=== PATIENT | male | born 1955 | race Caucasian/White ===

== ENCOUNTER 2019-01-23 19:41 | Inpatient (IN) ==
[~2019-01-23 19:41] MED LIST: LIDOCAINE W/ SODIUM BICARB 0.5 ML SYR ONE; Lactated Ringers 1,000 ML PRIMARY IV ONE
[2019-01-23] MEDS ORDERED: ceFAZolin Inj 3 GM in Sodium Chloride 0.9% 100 ML IV ONE (20:00)
[2019-01-23] MEDS ORDERED: KETAMINE 100 MG/1 ML - 5 ML ONE (20:12)
[2019-01-23] MEDS ORDERED: fentaNYL Inj 250 MCG/5 ML VIAL ONE ×2 (20:12→21:05)
[2019-01-23] MEDS ORDERED: MIDAZOLAM 5 MG/1 ML ONE (20:12)
[2019-01-23] MEDS ORDERED: LIDOCAINE MPF 2% - 5 ML (20 MG/1 ML) ONE (20:13)
[2019-01-23] MEDS ORDERED: PROPOFOL 10 MG/1 ML (200 MG/20 ML) VIAL IV ONE ×2 (20:13→21:05)
[2019-01-23] MEDS ORDERED: FAMOTIDINE 20 MG/2 ML VIAL IVP ONE (20:24)
[2019-01-23] MEDS ORDERED: Sodium Chloride 0.9% vial 20 ML ONE ×3 (20:43→21:23)
[2019-01-23] MEDS ORDERED: BUPivacaine Inj 0.25% PF - 10ml vial ONE (20:43)
[2019-01-23] MEDS ORDERED: BACITRACIN 50,000 UNIT VIAL IRRIG ONE ×3 (20:43→21:23)
[2019-01-23] MEDS ORDERED: Vancomycin Inj 1gm vial ONE (20:43)
[2019-01-23] MEDS ORDERED: PHENYLEPHRINE 10,000 MCG/1 ML VIAL ONE (21:05)
[2019-01-23] MEDS ORDERED: Sodium Chloride 0.9% vial 10 ML ONE (21:05)
[2019-01-23] MEDS ORDERED: TRANEXAMIC ACID 1,000 MG / 10 ML VIAL ONE (22:05)
--- NOTE | 2019-01-23 22:14 | CRNA.PROGR ---
Anesthesia Time - Procedure/Recovery Time Start Date: 01/23/19 Anesthesia : Time In: 20:48 Anesthesia : Time Out: 22:10 - Other Weight: 90.356 kg Height: 5 ft 11 in Body Mass Index (BMI): 27.8 Physical Status: P3 Anesthesia Type: General Anesthesia : LMA
[2019-01-23] MEDS ORDERED: ceFAZolin Inj 2 GM in Sodium Chloride 0.9% 100 ML IV SCH (23:00)
[2019-01-23] MEDS ORDERED: Glucagon Inj Vial 1 MG/ML VIAL IM PRN (23:34)
[2019-01-23] MEDS ORDERED: DEXTROSE 31 GM GEL PO PRN (23:34)
[2019-01-23] MEDS ORDERED: DEXTROSE 50%-WATER SYRINGE 50 ML SYRINGE IVP PRN (23:34)
[2019-01-23] MEDS ORDERED: Insulin Sliding Scale Protocol SUBCUT PRN (23:34)
--- NOTE | 2019-01-23 23:39 | PDOC ---
HPI - History of Present Illness Date of Service: 01/23/19 Time of Service: 23:31 Chief Complaint: Right knee swelling History of Present Illness: This is a pleasant 64-year-old male who resides in [place], [place], with known osteoarthritis, recent meniscal tears in his right knee scoped and repaired, diabetes mellitus type II, hypertension, gouty arthropathy, presumably atrial fibrillation on amiodarone and Eliquis, who presented for knee washout with Dr. Meyers. Apparently the patient had swelling in his knee postoperatively from his meniscal repairs and right knee scope 6 weeks ago that really did not improve a whole bunch, but got significantly worse after he could not get up the stairs after he was intoxicated. He states he drinks only once a year and this just happened to be that time that he did on this past Saturday. As the swelling was still persistent, workup was done and the patient had signs of a possible septic knee. He was brought down here from [place] and had washout done, see Dr. Meyers's notes regarding the procedure. He was placed on Ancef. There are no known MRSA risk factors. He states postoperatively that his knee pain is well controlled. He denies any chest pain, shortness breath, nausea or vomiting. His son was present and I spoke with him regarding the plan from the hospitalist side which would include blood sugar checks, insulin as necessary, and holding by mouth medications for diabetes. Past Medical History Medical History: 1. Diabetes mellitus type II. 2. Hypercholesterolemia. 3. Hypertension. 4. History of congestive heart failure although I don't know details of that and do not have an echocardiogram to reassess. 5. Osteoarthritis Surgical History: 1. Right meniscal tear repair. 2. Knee washout today. 3. Tonsillectomy. 4. Remote neck fusion Pertinent Family History: Significant for diabetes in an aunt Past Social History: Does not smoke or drink alcohol regularly. He states that he drinks heavily once a year. for 5 years. Has 3 children described as healthy. Currently retired and lives in [place], [place]. Tobacco Use: Former Smoker In the Past 12 Months, Have Used or Abuse Any of the Following Substance: None Alcohol Use: None Medication / Allergies Home Medications: Home Medications Medication Instructions Recorded Confirmed Amiodarone HCl 200 mg PO DAILY 11/21/18 01/23/19 Apixaban [Eliquis] 5 mg PO BID 11/21/18 01/23/19 Aspirin [Aspir 81] 81 mg PO DAILY 11/21/18 01/23/19 Atorvastatin Calcium 40 mg PO DAILY 11/21/18 12/10/18 Carvedilol 3.125 mg PO BID 11/21/18 01/23/19 Clopidogrel Bisulfate [Plavix] 75 mg PO DAILY 11/21/18 01/23/19 Insulin Aspart [Novolog] 100 unit SQ DAILY 11/21/18 01/23/19 Insulin Degludec [Tresiba 86 unit SQ DAILY 11/21/18 01/23/19 Flextouch U-200] Liraglutide [Victoza 3-Misha] 4.2 mg SQ DAILY 11/21/18 01/23/19 Magnesium l-Lactate [Mag-Tab Sr] 84 mg PO DAILY 11/21/18 01/23/19 Potassium Chloride 10 meq PO DAILY 11/21/18 12/10/18 Sitagliptin Phosphate [Januvia] 25 mg PO DAILY 11/21/18 12/10/18 Torsemide 100 mg PO DAILY 11/21/18 01/23/19 Hydrocodone/Acetaminophen [[place] 1 - 2 ea PO Q4-6H PRN #30 tab 12/11/18 7.5-325 Tablet] Allergies/Adverse Reactions: Allergies Allergy/AdvReac Type Severity Reaction Status Date / Time No Known Allergies Allergy Verified 01/23/19 20:00 Review of Systems - Review of Systems All Systems: Reviewed & No Additional Complaints Except as Stated (I did a 12 point review systems and it was negative other than that discussed below and in the history of present illness.) - Neurological Neurologic: REPORTS: Seizures (Had a possible seizure in the past but he does not recall details at this time) Exam - Vitals Vital Signs: Vital Signs Temperature 97.9 F Temperature Source Oral Pulse Rate 86 Respiratory Rate 16 Blood Pressure [Left Arm] 116/80 Blood Pressure 119/85 Pulse Ox 93 Oxygen Flow Rate 3 Oxygen Delivery Method Nasal Cannula Height 5 ft 8 in Weight 200 lb - General General Appearance: No Acute Distress, Cooperative - Head Head Exam: Normal Inspection, Normocephalic, Atraumatic - Eye Eye Exam: POSITIVE: No Scleral Icterus - ENT ENT Exam: POSITIVE: Mucous Membranes Moist - Neck Neck Exam: Normal Inspection, No Tenderness, No Lymphadenopathy, No Thyromegaly, JVP is not Raised - Respiratory Respiratory Exam: POSITIVE: Clear to Auscultation - Bilaterally, Breathing Non Labored - Cardiovascular Cardiovascular Exam: POSITIVE: RRR, No Murmur, No Clicks, No Gallops, No Rubs, No JVD - GI/Abdominal GI/Abdominal Exam: POSITIVE: Normal Bowel Sounds, Non Tender, Non Distended, Soft - Rectal Rectal Exam: POSITIVE: Deferred - External Exam: POSITIVE: Deferred Exam: POSITIVE: Deferred - Extremities Extremities Exam: POSITIVE: No Clubbing Present, No Edema Present, No Cyanosis Present, Joint Swelling (Right knee, dressed at this time. Dressing is clean, dry, intact) - Neurological Neurological Exam: POSITIVE: Alert, Oriented x 3, No Facial Droop, Speech Intact / Clear, Moves All Extremities Equally - Psychiatric Psychiatric Exam: POSITIVE: Normal Affect, Normal Mood Results - Labs Additional Lab Results: I do not have any labs from today. 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 insulin use: with [facility] use Diabetes mellitus complication status: without complication Qualified Code(s): E11.9 - Type 2 diabetes mellitus without complications; Z79.4 - skilled nursing (current) use of insulin (2) Hypertension Current Visit: Yes Status: Acute Code(s): I10 - Essential (primary) hypertension Qualifiers: Hypertension type: essential hypertension Qualified Code(s): I10 - Essential (primary) hypertension (3) Septic arthritis of knee, right Current Visit: Yes Status: Acute Code(s): M00.9 - Pyogenic arthritis, unspecified Qualifiers: Septic arthritis organism: due to unspecified organism Qualified Code(s): M00.9 - Pyogenic arthritis, unspecified (4) History of congestive heart failure Current Visit: Yes Status: Acute Code(s): Z86.79 - Personal history of other diseases of the circulatory system (5) Hypercholesterolemia Current Visit: Yes Status: Acute Code(s): E78.00 - Pure hypercholesterolemia, unspecified - Assessment / Plan Additional Assessment/Plan Details: Patient is admitted, Ancef IV every 8 hours (2 g) await culture results. Dr. Meyers told me he plans to wash the patient out again on Saturday. For now, Eliquis but hold on Saturday morning in preparation for surgery on Saturday. Resume postoperatively if okay with orthopedics. Stop Januvia. Blood sugars before meals and at bedtime with corrective dose insulin. Maintain other diabetes medications. Regular diet. Generally, particularly if there is an organism growth 3 weeks of antibiotics minimum, likely IV. I will order blood cultures although I expect that they'll be negative. Ultimately cultures from the knee will likely guide therapy. About 20% of time, cultures can be negative. We'll discuss with infectious disease to determine long-term antibiotic plan. Thank you for this consult. It'll be the hospitalist service's pleasure to assist in this patient's care during the hospital stay. Discussed with son and patient at bedside and they agreed with the plan.
[2019-01-23] MEDS: CARVEDILOL 3.125 MG TABLET PO SCH (23:50)
[2019-01-23] MEDS: Apixaban 5 MG TABLET PO SCH (23:50)
[2019-01-24] MEDS: ceFAZolin Inj 2 GM in Sodium Chloride 0.9% 100 ML IV SCH ×3 (00:09→15:55)
[2019-01-24] MEDS: HYDROcodone-APAP 7.5 MG-325 MG TABLET PO PRN ×3 (00:13→21:15)
[2019-01-24 04:45] LABS: BASOPHILS # (AUTO) 0.01 10*3/UL; BASOPHILS % (AUTO) 0.1 % (0-1); EOSINOPHILS # (AUTO) 0 10*3/UL; EOSINOPHILS % (AUTO) 0 % (0-8); Hematocrit [HCT] 37.8 % (42.0-52.0); Hemoglobin [HGB] 11.6 g/dL (14.0-18.0); LYMPHOCYTES # (AUTO) 0.56 10*3/uL; MEAN CORPUSCULAR HGB CONC 30.7 g/dL (33-37); MEAN CORPUSCULAR VOLUME 72.3 FL (80-90); MONOCYTES # (AUTO) 0.38 10*3/UL (0.3-0.8); MONOCYTES % (AUTO) 3.5 % (5-15); RED BLOOD COUNT 5.23 10^6/uL (4.70-6.10)
[2019-01-24 04:52] LABS: BLOOD UREA NITROGEN 30 mg/dL (7-22)
[2019-01-24 05:09] LABS: PLATELET MORPHOLOGY COMMENT NORMAL MORPHOLOGY (NORM); RBC MORPHOLOGY COMMENT SEE COMMENTS (NORM); WBC MORPHOLOGY COMMENT NORMAL MORPHOLOGY (NORM)
[2019-01-24] MEDS: Insulin Lispro Flexpen 300 UNIT/3 ML INSULN.PEN SUBCUT SCH ×3 (06:58→16:22)
[2019-01-24] MEDS ORDERED: sitaGLIPtin Tab 100 MG TAB PO SCH (09:00)
[2019-01-24] MEDS ORDERED: INSULIN ASPART 100 UNIT SQ SCH (09:00)
[2019-01-24] MEDS: ASPIRIN EC 81 MG TABLET PO SCH (09:08)
[2019-01-24] MEDS: CLOPIDOGREL 75 MG TABLET PO SCH (09:08)
[2019-01-24] MEDS: ATORVASTATIN 40 MG TABLET PO SCH (09:09)
[2019-01-24] MEDS: MAGNESIUM OXIDE 400 MG TABLET PO SCH (09:09)
[2019-01-24] MEDS: Apixaban 5 MG TABLET PO SCH ×2 (09:09→21:15)
[2019-01-24] MEDS: CARVEDILOL 3.125 MG TABLET PO SCH ×2 (09:09→21:15)
[2019-01-24] MEDS: AMIODARONE 200 MG TABLET PO SCH (09:09)
[2019-01-24] MEDS: Potassium Chloride Tab 10 MEQ TAB PO SCH (09:09)
--- NOTE | 2019-01-24 09:14 | ORTHO.OP ---
Surgery Date: 01/23/19 Preoperative Diagnosis: R knee septic arthritis Postoperative Diagnosis: R knee septic arthritis Procedure: Right knee arthroscopic washout, I & D and synovctomy of R knee septic arthritis Surgeon: Vazquez Meyers MD Anesthesia Provider: Ginette Wheeler CRNA Anesthesia Type: General Estimated Blood Loss (mL): 100 Fluids: 500 ml crystalloid Pathology: none, cultures done previously on aspirate in [place] and patient already started on antibiotics Complications: None
--- NOTE | 2019-01-24 09:24 | ORTHO.PROG ---
Progress Note -: Vital Signs - Last Taken Temperature 97.6 F 01/24/19 08:51 Pulse Rate 69 01/24/19 08:51 Respiratory Rate 20 01/24/19 08:51 Blood Pressure 104/50 01/24/19 08:51 Pulse Ox 96 01/24/19 08:51 Laboratory Results 01/24/19 01/24/19 01/24/19 04:30 04:30 04:30 WBC 10.77 RBC 5.23 Hgb 11.6 L Hct 37.8 L MCV 72.3 L MCH 22.2 L MCHC 30.7 L RDW Std Deviation 58.4 H RDW Coeff of Shad 22.5 H Plt Count 421 H MPV 9.0 Immature Gran % (Auto) 0.2 Neut % (Auto) 91.0 H Lymph % (Auto) 5.2 L [place] % (Auto) 3.5 L Eos % (Auto) 0 Baso % (Auto) 0.1 Immature Gran # (Auto) 0.02 Neut # (Auto) 9.80 Lymph # (Auto) 0.56 [place] # (Auto) 0.38 Eos # (Auto) 0 Baso # (Auto) 0.01 WBC Morphology Comment Normal morphology Plt Morphology Comment Normal morphology RBC Morph Comment See comments ESR 23 H Sodium 137 Potassium 4.6 Chloride 104 Carbon Dioxide 24 Anion Gap 9 BUN 30 H Creatinine 1.0 Estimated GFR > 60 BUN/Creatinine Ratio 30.00 H Glucose 355 H Calculated Osmolality 303.0 H Calcium 8.6 L Total Bilirubin 0.4 AST 27 ALT 16 L Alkaline Phosphatase 116 C-Reactive Protein Total Protein 6.3 Albumin 3.0 L Globulin 3.3 Albumin/Globulin Ratio 0.90 L 01/24/19 04:30 WBC RBC Hgb Hct MCV MCH MCHC RDW Std Deviation RDW Coeff of Shad Plt Count MPV Immature Gran % (Auto) Neut % (Auto) Lymph % (Auto) [place] % (Auto) Eos % (Auto) Baso % (Auto) Immature Gran # (Auto) Neut # (Auto) Lymph # (Auto) [place] # (Auto) Eos # (Auto) Baso # (Auto) WBC Morphology Comment Plt Morphology Comment RBC Morph Comment ESR Sodium Potassium Chloride Carbon Dioxide Anion Gap BUN Creatinine Estimated GFR BUN/Creatinine Ratio Glucose Calculated Osmolality Calcium Total Bilirubin AST ALT Alkaline Phosphatase C-Reactive Protein 3.4 H Total Protein Albumin Globulin Albumin/Globulin Ratio Subjective: - Postop Day [1] comfortable, no fever or chills Objective: - Taking PO pain medication - Tolerating diabetic diet - No Alexandra - voiding without difficulty Drain output 80 cc - Labs and Vital Signs reviewed looks dry, will encourage PO liquids. Left shift w/o increased WBC but increased sed rate and CRP and 34,000 WBC on aspirate Assessment/ Plan: - CMS intact, await C& S result from [facility]. will continue IV ancef unless Cx result dictates otherwise. will ambulate in knee immobilizer. Continue DVT prophylaxis. Encourage PO Liquids. -
[2019-01-24] MEDS ORDERED: Sodium Chloride 0.9% 50 ML ONE (09:27)
[2019-01-24] MEDS: INSULIN DEGLUDEC 86 UNIT SQ SCH (09:42)
[2019-01-24] MEDS: TORSEMIDE 100 MG PO SCH (09:42)
[2019-01-24] MEDS: LIRAGLUTIDE SQ SCH (09:42)
[2019-01-24] MEDS ORDERED: Insulin Lispro Flexpen 300 UNIT/3 ML INSULN.PEN SUBCUT ONE ×2 (11:56→11:58)
--- NOTE | 2019-01-24 12:03 | PDOC(PROG) ---
Date of Service: 01/24/19 Time of Service: 12:00 Interval History: She denies chest pain, shortness breath, nausea or vomiting. He tells me that for his insulin he takes a sliding scale is the first 2 digits of his pre-meal blood glucose. He has been running very high blood sugars and so we will do that for him here. He states that his hemoglobin A1c at one time was 5.9, but he had a referral to endocrinology but has not followed up with them. Right knee pain is controlled. Spoke with Dr. Meyers. Cultures in [place] are still negative. Objective : Data - Labs CBC and BMP: 01/24/19 04:30 01/24/19 04:30 Objective : Exam - General General Appearance: No Acute Distress, Cooperative Additional General Exam Details: Vital Signs - Last Taken Temperature 97.6 F 01/24/19 08:51 Pulse Rate 69 01/24/19 08:51 Respiratory Rate 20 01/24/19 08:51 Blood Pressure 104/50 01/24/19 08:51 Pulse Ox 96 01/24/19 08:51 - Eye Eye Exam: No Scleral Icterus - ENT ENT Exam: Mucous Membranes Moist - Neck Neck Exam: JVP is not Raised - Respiratory Respiratory Exam: Clear to Auscultation - Bilaterally, Breathing Non Labored - Cardiovascular Cardiovascular Exam: RRR, No Murmur, No Clicks, No Gallops, No Rubs, No JVD - GI/Abdominal GI/Abdominal Exam: Normal Bowel Sounds, Non Tender, Non Distended, Soft - Extremities Extremities Exam: No Clubbing Present, No Edema Present, No Cyanosis Present, Joint Swelling (Right knee, dressed. Icepack around it.) - Neurological Neurological Exam: Alert, Oriented x 3, No Facial Droop, Speech Intact / Clear 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 mellitus adjunct faculty for medical terminology insulin use: with group home use Diabetes mellitus complication status: without complication Qualified Code(s): E11.9 - Type 2 diabetes mellitus without complications; Z79.4 - shelter (current) use of insulin (2) Hypertension Current Visit: Yes Status: Acute Code(s): I10 - Essential (primary) hypertension Qualifiers: Hypertension type: essential hypertension Qualified Code(s): I10 - Essential (primary) hypertension (3) Septic arthritis of knee, right Current Visit: Yes Status: Acute Code(s): M00.9 - Pyogenic arthritis, unspecified Qualifiers: Septic arthritis organism: due to unspecified organism Qualified Code(s): M00.9 - Pyogenic arthritis, unspecified (4) History of congestive heart failure Current Visit: Yes Status: Acute Code(s): Z86.79 - Personal history of other diseases of the circulatory system (5) Hypercholesterolemia Current Visit: Yes Status: Acute Code(s): E78.00 - Pure hypercholestero lemia, unspecified - Assessment / Plan Additional Assessment/Plan Details: I spoke with Dr. Rodriges with [place] infectious [facility]. He recommended continuing with Anc, recommends 4 weeks of IV antibiotics total. If culture is positive, target antibiotics towards culture results. If culture negative, it was suggested that the patient should be switched to vancomycin. This would be because sometimes staph epidermidis is a very slow grower and difficult to go culture and could be the causative agent. Adjust insulin scale as noted in subjective. Check hemoglobin A1c and labs tomorrow. Washout planned for Saturday with orthopedics. I think the patient would benefit from a PICC line but the soonest we would be able to do that would be either Saturday or Saturday.
[2019-01-25] MEDS: ceFAZolin Inj 2 GM in Sodium Chloride 0.9% 100 ML IV SCH ×2 (00:07→07:58)
[2019-01-25 04:38] LABS: BASOPHILS # (AUTO) 0.02 10*3/UL; BASOPHILS % (AUTO) 0.2 % (0-1); EOSINOPHILS # (AUTO) 0.01 10*3/UL; EOSINOPHILS % (AUTO) 0.1 % (0-8); Hemoglobin [HGB] 11.8 g/dL (14.0-18.0); MEAN CORPUSCULAR HGB CONC 31.1 g/dL (33-37); MEAN CORPUSCULAR VOLUME 72.9 FL (80-90); MEAN PLATELET VOLUME 9.1 FL (7.4-12.2); MONOCYTES # (AUTO) 0.77 10*3/UL (0.3-0.8); NEUTROPHILS # (AUTO) 11.12 10*3/UL; NEUTROPHILS % (AUTO) 85.8 % (50-80); RED BLOOD COUNT 5.21 10^6/uL (4.70-6.10)
[2019-01-25 04:47] LABS: PLATELET MORPHOLOGY COMMENT NORMAL MORPHOLOGY (NORM); RBC MORPHOLOGY COMMENT SEE COMMENTS (NORM); WBC MORPHOLOGY COMMENT NORMAL MORPHOLOGY (NORM)
[2019-01-25 04:50] LABS: BLOOD UREA NITROGEN 30 mg/dL (7-22); BUN/CREATININE RATIO 33.33 (6-20)
[2019-01-25] MEDS: Insulin Lispro Flexpen 300 UNIT/3 ML INSULN.PEN SUBCUT SCH ×3 (07:59→17:46)
[2019-01-25] MEDS: Potassium Chloride Tab 10 MEQ TAB PO SCH (08:50)
[2019-01-25] MEDS: Apixaban 5 MG TABLET PO SCH (08:50)
[2019-01-25] MEDS: ASPIRIN EC 81 MG TABLET PO SCH (08:50)
[2019-01-25] MEDS: MAGNESIUM OXIDE 400 MG TABLET PO SCH (08:50)
[2019-01-25] MEDS: CARVEDILOL 3.125 MG TABLET PO SCH ×2 (08:50→20:15)
[2019-01-25] MEDS: ATORVASTATIN 40 MG TABLET PO SCH (08:51)
[2019-01-25] MEDS: AMIODARONE 200 MG TABLET PO SCH (08:51)
[2019-01-25] MEDS: CLOPIDOGREL 75 MG TABLET PO SCH (08:51)
[2019-01-25] MEDS: INSULIN DEGLUDEC 86 UNIT SQ SCH (09:08)
[2019-01-25] MEDS: TORSEMIDE 100 MG PO SCH (09:08)
[2019-01-25] MEDS: LIRAGLUTIDE SQ SCH (09:08)
[2019-01-25] MEDS ORDERED: MAGNESIUM 400 MG/5 ML - 30 ML (MILK OF MAGNESIA) PO ONE (12:15)
--- NOTE | 2019-01-25 12:19 | PDOC(PROG) ---
Date of Service: 01/25/19 Time of Service: 12:13 Interval History: States that his knee hurt but thinks it could be from the position of the drain catheter. No chest pain, no shortness breath, no nausea or vomiting. When I told him his hemoglobin A1c was above 10, he stated a few weeks ago was around 8 so I'm not sure how to explain that discrepancy. Objective : Data - Labs CBC and BMP: 01/25/19 04:15 01/25/19 04:15 Additional Lab Results: Selected Entries 01/24/19 20:08 01/25/19 07:33 01/25/19 11:48 Finger Stick Blood Glucose 145 H 207 H 178 H Objective : Exam - General General Appearance: No Acute Distress, Cooperative Additional General Exam Details: Vital Signs - Last Taken Temperature 97.1 F 01/25/19 11:36 Pulse Rate 76 01/25/19 11:36 Respiratory Rate 17 01/25/19 11:36 Blood Pressure 126/77 01/25/19 11:36 Pulse Ox 94 01/25/19 11:36 - ENT ENT Exam: Mucous Membranes Moist - Neck Neck Exam: JVP is not Raised - Respiratory Respiratory Exam: Clear to Auscultation - Bilaterally, Breathing Non Labored - Cardiovascular Cardiovascular Exam: RRR, No Murmur, No Clicks, No Gallops, No Rubs, No JVD - GI/Abdominal GI/Abdominal Exam: Normal Bowel Sounds, Non Tender, Non Distended, Soft - Extremities Extremities Exam: No Clubbing Present, No Edema Present, No Cyanosis Present, Joint Swelling (Right knee is dressed. 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: with care home use Diabetes mellitus complication status: without complication Qualified Code(s): E11.9 - Type 2 diabetes mellitus without complications; Z79.4 - assisted (current) use of insulin (3) Hypertension Current Visit: Yes Status: Acute Code(s): I10 - Essential (primary) hypertension Qualifiers: Hypertension type: essential hypertension Qualified Code(s): I10 - Essential (primary) hypertension (4) History of congestive heart failure Current Visit: Yes Status: Acute Code(s): Z86.79 - Personal history of other diseases of the circulatory system (5) Hypercholesterolemia Current Visit: Yes Status: Acute Code(s): E78.00 - Pure hy percholesterolemia, unspecified - Assessment / Plan Additional Assessment/Plan Details: I spoke with infectious disease. I also spoke with the lab in [place]. Cultures thus far negative both aerobic and anaerobic. Infectious disease thinks at this point with culture negative state, daptomycin would be best for coverage in case this is a staph epidermidis infection or something more difficult culture out of the knee that daptomycin recover. We will arrange antibiotics and send everything to recommend infectious disease tomorrow. PICC line probably on Saturday given surgery tomorrow and then probable discharge Saturday. Blood sugars much better controlled on the patient's home regimen. Ultimately I think he would do better on a pop and he already has a referral from his primary care physician to an reliability engineer. I discussed importance of controlling blood sugars in the setting of potential infection. He seems to understand the discussion well. Hold blood thinners and stop Plavix and Eliquis Resume the blood thinners tomorrow after surgery
[2019-01-25] MEDS: FUROSEMIDE 20 MG TABLET PO SCH (13:08)
[2019-01-25] MEDS: SODIUM CHLORIDE 0.9% IV SCH (13:51)
[2019-01-25] MEDS: DAPTOMYCIN IV SCH (13:51)
[2019-01-25] MEDS: GABAPENTIN 300 MG CAPSULE PO SCH (20:15)
[2019-01-25] MEDS ORDERED: CARVEDILOL 3.125 MG TABLET PO ONE (21:39)
--- NOTE | 2019-01-25 23:27 | ORTHO.PROG ---
Progress Note -: Vital Signs - Last Taken Temperature 97.6 F 01/25/19 18:51 Pulse Rate 69 01/25/19 18:51 Respiratory Rate 18 01/25/19 18:51 Blood Pressure 112/68 01/25/19 18:51 Pulse Ox 94 01/25/19 18:51 Laboratory Results 01/25/19 01/25/19 01/25/19 04:15 04:15 04:15 WBC 12.94 H RBC 5.21 Hgb 11.8 L Hct 38.0 L MCV 72.9 L MCH 22.6 L MCHC 31.1 L RDW Std Deviation 59.7 H RDW Coeff of Shad 22.8 H Plt Count 425 H MPV 9.1 Immature Gran % (Auto) 0.2 Neut % (Auto) 85.8 H Lymph % (Auto) 7.7 L [place] % (Auto) 6.0 Eos % (Auto) 0.1 Baso % (Auto) 0.2 Immature Gran # (Auto) 0.02 Neut # (Auto) 11.12 Lymph # (Auto) 1.00 [place] # (Auto) 0.77 Eos # (Auto) 0.01 Baso # (Auto) 0.02 WBC Morphology Comment Normal morphology Plt Morphology Comment Normal morphology RBC Morph Comment See comments Sodium 140 Potassium 4.1 Chloride 105 Carbon Dioxide 28 Anion Gap 7 BUN 30 H Creatinine 0.9 Estimated GFR > 60 BUN/Creatinine Ratio 33.33 H Glucose 215 H Mean Blood Glucose 276.970 Hemoglobin A1c 10.90 H Calculated Osmolality 301.0 H Calcium 8.4 L Total Creatine Kinase 01/25/19 05:00 WBC RBC Hgb Hct MCV MCH MCHC RDW Std Deviation RDW Coeff of Shad Plt Count MPV Immature Gran % (Auto) Neut % (Auto) Lymph % (Auto) [place] % (Auto) Eos % (Auto) Baso % (Auto) Immature Gran # (Auto) Neut # (Auto) Lymph # (Auto) [place] # (Auto) Eos # (Auto) Baso # (Auto) WBC Morphology Comment Plt Morphology Comment RBC Morph Comment Sodium Potassium Chloride Carbon Dioxide Anion Gap BUN Creatinine Estimated GFR BUN/Creatinine Ratio Glucose Mean Blood Glucose Hemoglobin A1c Calculated Osmolality Calcium Total Creatine Kinase 20 L Subjective: - Postop Day [2] Knee a little sore. No CP,SOB. Objective: - Taking PO pain medication - Tolerating diabeticdiet - No Alexandra - voiding without difficulty - Ambulating in immobilizer - Labs and Vital Signs reviewed no growth on culture. No F/C. Assessment: - CMS intact - minimal dng in hemovac Plan: I appreciate Dr. Vazquez's and Dr. Rodriges's assistance. Plan is to hold blood thinners today. Add on tomorrow for repeat washout. Will need PICC line for 4 wks Dapto to cover possible Staph Epidermitis which can be difficult to grow on culture. NPO p 7am.
[2019-01-26] MEDS: FUROSEMIDE 20 MG TABLET PO SCH ×2 (07:21→12:25)
[2019-01-26] MEDS: Insulin Lispro Flexpen 300 UNIT/3 ML INSULN.PEN SUBCUT SCH ×3 (07:21→16:23)
[2019-01-26] MEDS: Potassium Chloride Tab 10 MEQ TAB PO SCH ×2 (07:39→16:02)
[2019-01-26] MEDS: MAGNESIUM OXIDE 400 MG TABLET PO SCH (09:03)
[2019-01-26] MEDS: CARVEDILOL 3.125 MG TABLET PO SCH ×2 (09:04→21:48)
[2019-01-26] MEDS: AMIODARONE 200 MG TABLET PO SCH (09:04)
[2019-01-26] MEDS: GABAPENTIN 300 MG CAPSULE PO SCH ×3 (09:05→21:48)
[2019-01-26] MEDS ORDERED: Lidocaine 1% 10 MG/ML - 20 ML VIAL SUBCUT PRN (09:14)
[2019-01-26] MEDS ORDERED: LIDOCAINE 2% 20 MG/ML - 20 ML VIAL SUBCUT PRN (09:14)
[2019-01-26] MEDS ORDERED: HEPARIN 500 UNIT/5 ML SYRINGE FOR CENTRAL LINE IVP PRN (09:14)
[2019-01-26] MEDS ORDERED: LIDOCAINE W/ SODIUM BICARB 0.5 ML SYR SUBD PRN ×2 (09:18→19:55)
[2019-01-26] MEDS: LIRAGLUTIDE SQ SCH (09:37)
[2019-01-26] MEDS: INSULIN DEGLUDEC 86 UNIT SQ SCH (09:37)
--- NOTE | 2019-01-26 10:50 | OPS CRUTCH ---
Referral Reason: Knee Immobilizer O: The patient was issued a knee immobilizer and instructed in its proper use and care. P: No further therapy is indicated at this time. MTDD
[2019-01-26] MEDS: SODIUM CHLORIDE 0.9% IV SCH (12:25)
[2019-01-26] MEDS: DAPTOMYCIN IV SCH (12:25)
[2019-01-26] MEDS: ASPIRIN EC 81 MG TABLET PO SCH (12:50)
[2019-01-26] MEDS ORDERED: CYANOCOBALAMIN 1000 MCG/1 ML VIAL IM ONE (15:12)
[2019-01-26] MEDS ORDERED: BUPivacaine Inj 0.25% PF - 10ml vial ONE (15:12)
--- NOTE | 2019-01-26 15:21 | PDOC(PROG) ---
Date of Service: 01/26/19 Time of Service: 15:14 Interval History: Patient seen and evaluated earlier. Knee pain controlled he was able to ambulate to the bathroom without difficulty. No chest pain, no shortness breath, no nausea or vomiting. He has not noticed any black or tarry stools or blood in the stool. We found iron deficiency. We found a B12 deficiency. Objective : Data - Labs CBC and BMP: 01/25/19 04:15 01/25/19 04:15 Additional Lab Results: 01/26/19 01/26/19 01/26/19 04:08 04:08 04:08 Iron 19 L TIBC 296 % Saturation 6.4 L Vitamin B12 406 Vitamin D 25-Hydroxy 27.2 L Serum Folate 6.57 Objective : Exam - General General Appearance: No Acute Distress, Cooperative Additional General Exam Details: Vital Signs - Last Taken Temperature 97 F 01/26/19 11:25 Pulse Rate 71 01/26/19 11:25 Respiratory Rate 19 01/26/19 11:25 Blood Pressure 125/68 01/26/19 11:25 Pulse Ox 91 01/26/19 11:25 - Eye Eye Exam: No Scleral Icterus - ENT ENT Exam: Mucous Membranes Moist - Neck Neck Exam: JVP is not Raised - Respiratory Respiratory Exam: Clear to Auscultation - Bilaterally, Breathing Non Labored - Cardiovascular Cardiovascular Exam: RRR, No Murmur, No Clicks, No Gallops, No Rubs, No JVD - GI/Abdominal GI/Abdominal Exam: Normal Bowel Sounds, Non Tender, Non Distended, Soft - Extremities Extremities Exam: No Clubbing Present, No Edema Present, No Cyanosis Present, Joint Swelling (right knee dressed, dressing is clean, dry, intact.) - Neurological Neurological Exam: Alert, Oriented x 3, No Facial Droop, Speech Intact / Clear, Moves All Extremities Equally Assessment and Plan - Patient Problems (1) Septic arthritis of knee, right Current Visit: Yes Status: Acute Code(s): M00.9 - Pyogenic arthritis, unspecified Qualifiers: Septic arthritis organism: due to unspecified organism Qualified Code(s): M00.9 - Pyogenic arthritis, unspecified (2) Diabetes mellitus, type II Current Visit: Yes Status: Acute Code(s): E11.9 - Type 2 diabetes mellitus without complications Qualifiers: Diabetes mellitus shelter insulin use: with shelter use Diabetes mellitus complication status: without complication Qualified Code(s): E11.9 - Type 2 diabetes mellitus without complications; Z79.4 - senior living (current) use of insulin (3) Hypertension Current Visit: Yes Status: Acute Code(s): I10 - Essential (primary) hypertension Qualifiers: Hypertension type: essential hypertension Qualified Code(s): I10 - Essential (primary) hypertension (4) History of congestive heart failure Current Visit: Yes Status: Acute Code(s): Z86.79 - Personal history of other diseases of the circulatory system (5) Hypercholesterolemia Current Visit: Yes Status: Acute Code(s): E78.00 - Pure hypercholesterolem ia, unspecified (6) Vitamin D deficiency Current Visit: Yes Status: Acute Code(s): E55.9 - Vitamin D deficiency, unspecified (7) Vitamin B12 deficiency Current Visit: Yes Status: Acute Code(s): E53.8 - Deficiency of other specified B group vitamins (8) Iron deficiency Current Visit: Yes Status: Acute Code(s): E61.1 - Iron deficiency - Assessment / Plan Additional Assessment/Plan Details: I'm going to set him up with a dose with IV iron. We talked about by mouth v ersus IV iron and patient agrees IV is probably his best choice. I also think the patient should have an EGD and colonoscopy done with gastroenterology will try to set him up with Dr. ba [facility] in [place]. Vitamin B12 supplementation and vitamin D supplementation. Overall the labs are very suggestive of someone who has chronic alcoholism. Continue daptomycin probably upwards of 4 weeks. I do have the patient arrange for infectious disease on 01/28/2019 at 9:45 AM so we'll discharge him that morning. PICC line. Resume diet postoperatively along with insulins. I like to go ahead and hold off on Plavix for at least a week and resume Eliquis sometime tomorrow probably in the evening if this is okay with orthopedics.
[2019-01-26] MEDS: Lactated Ringers 1,000 ML PRIMARY IV SCH (16:05)
[2019-01-26] MEDS ORDERED: PROPOFOL 10 MG/1 ML (200 MG/20 ML) VIAL IV ONE (18:16)
[2019-01-26] MEDS ORDERED: MIDAZOLAM HCL 2 MG/2 ML VIAL ONE (18:16)
[2019-01-26] MEDS ORDERED: LIDOCAINE MPF 2% - 5 ML (20 MG/1 ML) ONE (18:16)
[2019-01-26] MEDS ORDERED: fentaNYL Inj 250 MCG/5 ML VIAL ONE (18:16)
[2019-01-26] MEDS ORDERED: ePHEDrine Inj 50 MG/ML AMP ONE (18:29)
[2019-01-26] MEDS ORDERED: Lactated Ringers 1,000 ML PRIMARY IV ONE (18:40)
[2019-01-26] MEDS ORDERED: TRANEXAMIC ACID 1,000 MG / 10 ML VIAL ONE (18:50)
[2019-01-26] MEDS ORDERED: ONDANSETRON 4 MG/2 ML VIAL IVP PRN (19:28)
--- NOTE | 2019-01-26 19:34 | ORTHO.OP ---
- - -: See Dictated Operative Report
[2019-01-26] MEDS ORDERED: HYDROmorphone 2 MG/1 ML IVP PRN (19:55)
[2019-01-26] MEDS ORDERED: fentaNYL Inj 100 MCG/2 ML VIAL IVP PRN (19:55)
--- NOTE | 2019-01-26 19:55 | CRNA.PROGR ---
Anesthesia Time - Procedure/Recovery Time Start Date: 01/26/19 End Date: 01/26/19 Anesthesia : Time In: 18:19 Anesthesia : Time Out: 19:40 Anesthesia : Total Time: 81 - Total Anesthesia Time Total Anesthesia Time (minutes): 81 - Other Weight: 89.63 kg Height: 5 ft 8 in Body Mass Index (BMI): 30.0 Physical Status: P3 Anesthesia Type: General Anesthesia : LMA
--- NOTE | 2019-01-26 19:55 | CRNA.PROGR ---
Anesthesia Recovery Phase I - Post Anesthesia Evaluation Patient's Condition on Arrival in Phase I: Stable Pain Level: 0
[2019-01-26] MEDS ORDERED: Iron Sucrose Inj 500 MG in Sodium Chloride 0.9% 250 ML IV ONE (21:00)
[2019-01-26] MEDS: DOCUSATE 100 MG CAPSULE PO SCH (21:48)
[2019-01-26] MEDS: HYDROcodone-APAP 7.5 MG-325 MG TABLET PO PRN (23:37)
[2019-01-27] MEDS: Lactated Ringers 1,000 ML PRIMARY IV SCH ×3 (03:07→15:03)
[2019-01-27 05:12] LABS: MEAN CORPUSCULAR HGB CONC 30.6 g/dL (33-37); MEAN CORPUSCULAR VOLUME 74.1 FL (80-90); MEAN PLATELET VOLUME 9.2 FL (7.4-12.2); RED BLOOD COUNT 4.86 10^6/uL (4.70-6.10)
[2019-01-27] MEDS: Potassium Chloride Tab 10 MEQ TAB PO SCH ×2 (07:37→16:16)
[2019-01-27] MEDS: FUROSEMIDE 20 MG TABLET PO SCH ×2 (07:37→12:13)
[2019-01-27] MEDS: Insulin Lispro Flexpen 300 UNIT/3 ML INSULN.PEN SUBCUT SCH ×3 (07:38→16:16)
[2019-01-27] MEDS: ASPIRIN EC 81 MG TABLET PO SCH (08:15)
[2019-01-27] MEDS: CHOLECALCIFEROL 1000 IU TABLET PO SCH (08:15)
[2019-01-27] MEDS: GABAPENTIN 300 MG CAPSULE PO SCH ×3 (08:15→21:02)
[2019-01-27] MEDS: MAGNESIUM OXIDE 400 MG TABLET PO SCH (08:15)
[2019-01-27] MEDS: AMIODARONE 200 MG TABLET PO SCH (08:15)
[2019-01-27] MEDS: CARVEDILOL 3.125 MG TABLET PO SCH ×2 (08:15→21:02)
[2019-01-27] MEDS: INSULIN DEGLUDEC 86 UNIT SQ SCH (08:16)
[2019-01-27] MEDS: LIRAGLUTIDE SQ SCH (08:16)
[2019-01-27] MEDS: DOCUSATE 100 MG CAPSULE PO SCH ×2 (08:16→21:02)
[2019-01-27] MEDS: SODIUM CHLORIDE 0.9% IV SCH (12:12)
[2019-01-27] MEDS: DAPTOMYCIN IV SCH (12:12)
--- NOTE | 2019-01-27 15:09 | PDOC(PROG) ---
Date of Service: 01/27/19 Time of Service: 15:04 Interval History: Patient seen and evaluated earlier today. No chest pain, shortness breath, nausea or vomiting. He states his right knee feels great. He stated to me that after his meniscus repair, his knee felt great for quite some time. Objective : Data - Labs CBC and BMP: 01/27/19 04:00 01/25/19 04:15 Objective : Exam - General General Appearance: No Acute Distress, Cooperative Additional General Exam Details: Vital Signs - Last Taken Temperature 97 F 01/27/19 11:11 Pulse Rate 60 01/27/19 11:11 Respiratory Rate 20 01/27/19 11:11 Blood Pressure 96/58 01/27/19 11:11 Pulse Ox 92 01/27/19 11:11 - Eye Eye Exam: No Scleral Icterus - ENT ENT Exam: Mucous Membranes Moist - Neck Neck Exam: JVP is not Raised - Respiratory Respiratory Exam: Clear to Auscultation - Bilaterally, Breathing Non Labored - Cardiovascular Cardiovascular Exam: RRR, No Murmur, No Clicks, No Gallops, No Rubs, No JVD - GI/Abdominal GI/Abdominal Exam: Normal Bowel Sounds, Non Tender, Non Distended, Soft - Extremities Extremities Exam: No Clubbing Present, No Edema Present, No Cyanosis Present Additional Extremities Exam Details: Right knee is dressed, dressing is clean, dry, intact - Neurological Neurological Exam: Alert, Oriented x 3, No Facial Droop, Speech Intact / Clear, Moves All Extremities Equally - Central Line Examination Central Line Present on Admission: Yes Central Line Type: PICC Line (PICC line in left upper extremity, clean, dry, int act, no erythema, dressed) Central Line Location: Arm (L) Assessment and Plan - Patient Problems (1) Septic arthritis of knee, right Current Visit: Yes Status: Acute Code(s): M00.9 - Pyogenic arthritis, unspecified Qualifiers: Septic arthritis organism: due to unspecified organism Qualified Code(s): M00.9 - Pyogenic arthritis, unspecified (2) Diabetes mellitus, type II Current Visit: Yes Status: Acute Code(s): E11.9 - Type 2 diabetes mellitus without complications Qualifiers: Diabetes mellitus oil heaterman insulin use: with oil heaterman use Diabetes mellitus complication status: without complication Qualified Code(s): E11.9 - Type 2 diabetes mellitus without complications; Z79.4 - jail (current) use of insulin (3) Hypertension Current Visit: Yes Status: Acute Code(s): I10 - Essential (primary) h ypertension Qualifiers: Hypertension type: essential hypertension Qualified Code(s): I10 - Essential (primary) hypertension (4) History of congestive heart failure Current Visit: Yes Status: Acute Code(s): Z86.79 - Personal history of other diseases of the circulatory system (5) Hypercholesterolemia Current Visit: Yes Status: Acute Code(s): E78.00 - Pure hypercholesterolemia, unspecified (6) Vitamin D deficiency Current Visit: Yes Status: Acute Code(s): E55.9 - Vitamin D deficiency, unspecified (7) Vitamin B12 deficiency Current Visit: Yes Status: Acute Code(s): E53.8 - Deficiency of other specified B group vitamins (8) Iron deficiency Current Visit: Yes Status: Acute Code(s): E61.1 - Iron deficiency - Assessment / Plan Additional Assessment/Plan Details: Patient's PICC line went fine, it is in place, continue daptomycin, day #4. Patient will be discharged tomorrow assuming no issues or palpitations ovnieves rnight, his CK was low, and his labs are baselined for continuing therapy. I will hold statin therapy for the next month. He can resume a statin in a month. We will resume Eliquis but I would like to hold off on Plavix for at least a week. Pain management as per orthopedics. I did call gastroenterology and left referral in place. They will call the patient for appointment to arrange E G D and colonoscopy to evaluate further for iron deficiency anemia. This report was transcribed using Dragon naturally speak voice recognition. Despite editing, there may be grammatical and/or typographical errors in this apartment rental agent report due to the limitations inherent with voice activated and speech recognition software.
--- NOTE | 2019-01-27 15:15 | DI ---
INSERTION OF PICC LINE WITH FLUOROSCOPIC GUIDANCE, 01/27/2019 9:15 AM: Clinical History: Septic knee Technique: After informed, signed consent was obtained, the left arm was prepped with Betadine and al cohol. Venipuncture was achieved as described with the ultrasound report and the introducer sheath wa s positioned in place using the Seldinger technique with local anesthesia (1% Lidocaine without epine phrine). A 4 Thai double lumen Bard Power Picc Solo PICC catheter was inserted and the tip was posi tioned with fluoroscopic guidance. Fluoroscopic documentation was with a spot film. The standard dry sterile dressing kit was used to secure the catheter. Final catheter documentation was with a spot fi lm of the chest and this film confirmed that the catheter tip was in the distal innominate vein with an adjacent pacemaker. The patient tolerated the procedure well and was discharged in stable conditio n. Standard instructions regarding wound care precautions and dressing changes were discussed with e patient prior to discharge. Database Marketing Specialist: Cem appiah M.D. Studio Engineer: None. Complications: None. Reading: PICC line placement as above. ICD9: { } CPT: 43659; 38776
[2019-01-27] MEDS: Apixaban 5 MG TABLET PO SCH (21:03)
--- NOTE | 2019-01-27 21:48 | ORTHO.PROG ---
Progress Note -: Vital Signs - Last Taken Temperature 97.7 F 01/27/19 19:45 Pulse Rate 71 01/27/19 19:45 Respiratory Rate 18 01/27/19 19:45 Blood Pressure 102/59 01/27/19 19:45 Pulse Ox 90 01/27/19 19:45 Laboratory Results 01/27/19 04:00 WBC 8.60 RBC 4.86 Hgb 11.0 L Hct 36.0 L MCV 74.1 L MCH 22.6 L MCHC 30.6 L RDW Std Deviation 60.5 H RDW Coeff of Shad 23.0 H Plt Count 399 H MPV 9.2 Subjective: - Postop Day [1] Objective: - Taking PO pain medication - Tolerating regular diet - No Alexandra - voiding without difficulty - Ambulating - Labs and Vital Signs reviewed Assessment: Culture negative R knee septic arthritis. - Plan: - Discharge home tomorrow with home health for home IV Daptomycin for 4 weeks. Needs an appt with Dr Rodriges in [facility] in the next 10 Days and with me in 1 week with CMP, CBC, ESR and CRP prior to visit. Pt may discontinue dressing in 3 days then he may shower but not immerse wound. Call for any problems or fevers or chills or drainage. Weight bear as tolerated in knee immobilizer until seen next week. May bend knee when not walking.
[2019-01-28 04:18] LABS: Hematocrit [HCT] 34.1 % (42.0-52.0); Hemoglobin [HGB] 10.2 g/dL (14.0-18.0); MEAN CORPUSCULAR HGB CONC 29.9 g/dL (33-37); MEAN CORPUSCULAR VOLUME 74.9 FL (80-90); RED BLOOD COUNT 4.55 10^6/uL (4.70-6.10)
[2019-01-28 06:58] VITALS: BP 105/56; RESP 20; TEMP 97.9; O2SAT 95
[2019-01-28] MEDS: Insulin Lispro Flexpen 300 UNIT/3 ML INSULN.PEN SUBCUT SCH (07:04)
[2019-01-28] MEDS: GABAPENTIN 300 MG CAPSULE PO SCH (07:09)
[2019-01-28] MEDS: Potassium Chloride Tab 10 MEQ TAB PO SCH (07:09)
[2019-01-28] MEDS: FUROSEMIDE 20 MG TABLET PO SCH (07:09)
--- NOTE | 2019-01-28 08:04 | DCSUMMARY ---
Hospitalization Summary Admit Date: 01/23/2019 Discharge Date: 01/28/19 Primary Diagnosis:: right septic knee arthritis, unclear etiology Hospital Course: This very pleasant 64-year-old male with multiple medical issues and hypertension, congestive heart failure, diabetes, hypercholesterolemia, and recent meniscal tears that were repaired about 6 weeks ago. He states to me that he goes on a goyal once a year, and he fell down the stairs and had some swelling in his right knee and saw his orthopedic physician for that. An arthrocentesis revealed a high white blood cell count and there was significant concern for a septic knee down here for a washout. Interestingly, the patient told me that after his initial knee surgery, he "felt great", and the knee was not painful at all. Be that as it may, cultures in [place] were negative, and he had negative blood cultures here, but when I spoke with orthopedic physician, Dr. Meyers, there appeared to be a "pussy" kind of material that was washed out from the knee. He was never septic here, and he was placed on antibiotics, and I spoke with infectious disease regarding antibiotic recommendations with culture negative results. Daptomycin was recommended to cover potential coag- negative staph for organisms that might not be growing. He is on day #5 of antibiotics today, day #3 daptomycin. We found iron deficiency anemia, low normal vitamin B12, a very low vitamin D level, and did vitamin supplementation. We gave him a dose of iron. I have arranged for him to visit with Dr. Boykin for an eventual EGD and colonoscopy to evaluate iron deficiency anemia further. I was careful to explain to the pat ient that this is a symptom and not a diagnosis. He seems to understand that very well. He states the gastroenterology group has called him to set up an appointment already. His diabetes was poorly controlled and we discussed this in depth with the patient. His date and day out blood sugars were actually okay on every before meals/at bedtime checks when we let him do his sliding scale. It is an interesting scale and that he takes about 100 units of fast acting insulin daily spread out that his mealtimes. Today, no complaints of chest pain, shortness breath, nausea or vomiting. His PICC line in the left upper extremity is okay, no swelling, no erythema and it is dressed. Assessment and Plan: 1. As per discharge assessments noted 2. Disposition: Patient is discharged home. 3. Condition on discharge, stable and improved. 4. Diet: regular diet 5. Activities: Activities as per Dr. Meyers. Use knee brace when up over the next week. 6. Follow-Up: 1. See Dr. Freed one week 2. [facility] infectious diseases today 3. Dr. Meyers in a week 7. Medications at the Time of Discharge: Home Medications Medication Instructions Recorded Confirmed Amiodarone HCl 200 mg PO DAILY 11/21/18 01/23/19 Apixaban [Eliquis] 5 mg PO BID 11/21/18 01/23/19 Aspirin [Aspir 81] 81 mg PO DAILY 11/21/18 01/23/19 Carvedilol 6.25 mg PO BID 11/21/18 01/26/19 Clopidogrel Bisulfate [Plavix] 75 mg PO DAILY 11/21/18 01/23/19 Insulin Aspart [Novolog] 5 unit SQ BID 11/21/18 01/26/19 Insulin Degludec [Tresiba 60 unit SQ BID 11/21/18 01/26/19 Flextouch U-200] Liraglutide [Victoza 3-Misha] 1.2 mg SQ DAILY 11/21/18 01/26/19 Magnesium l-Lactate [Mag-Tab Sr] 84 mg PO BID 11/21/18 01/26/19 Sitagliptin Phosphate [Januvia] 25 mg PO DAILY 11/21/18 01/26/19 Hydrocodone/Acetaminophen [[place] 1 - 2 ea PO Q4-6H PRN #30 tab 12/11/18 01/26/19 7.5-325 Tablet] Albuterol Sulfate [Proair Hfa] 1 puff INHALATION QID 01/26/19 01/26/19 Blood Sugar Diagnostic [Accu-Chek 1 ea SUBCUT QID 01/26/19 01/26/19 Guide Test Strip] Blood-Glucose Meter [Accu-Chek 1 ea SUBCUT ASDIR 01/26/19 01/26/19 Guide Monitor System] DAPTOmycin Inj [Cubicin Inj] 500 mg IV Q24H vial 01/26/19 Digoxin 250 mcg PO DAILY 01/26/19 01/26/19 Fluticasone/Vilanterol [Breo 1 puff INHALATION DAILY 01/26/19 01/26/19 Ellipta 200-25 Mcg INH] Furosemide [Lasix] 80 mg PO BID 01/26/19 01/26/19 Gabapentin 300 mg PO TID 01/26/19 01/26/19 Lancets 1 ea SUBCUT QID 01/26/19 01/26/19 Potassium Chloride 20 meq PO BID 01/26/19 01/26/19 Tiotropium [place] [Spiriva] 1 inh INHALATION DAILY 01/26/19 01/26/19 Umeclidinium [place] [Incruse 1 puff INHALATION DAILY 01/26/19 01/26/19 Ellipta] Cholecalciferol [Vitamin D3] 1,000 iu PO DAILY tab 01/28/19 Heparin Lock Inj [Heparin Lock Inj 300 - 500 unit IVP BID PRN syringe 01/28/19 (for Central Line)] 8. Time, care, counseling and coordination of care for this discharge is greater than 30 minutes. Exam - Vitals Vital Signs: Vital Signs Temperature 97.9 F Temperature Source Oral Pulse Rate [Pulse Oximeter] 70 Pulse Rate 74 Respiratory Rate 20 Blood Pressure [Left Radial 105/56 Artery] Blood Pressure [Right Arm] 110/63 Blood Pressure [Left Arm] 96/58 Blood Pressure 101/73 Pulse Ox 95 Oxygen Flow Rate 1 Oxygen Delivery Method Room Air Height 5 ft 8 in Weight 197 lb 3.2 oz - General General Appearance: No Acute Distress, Cooperative - Head Head Exam: Normal Inspection, Normocephalic, Atraumatic - Eye Eye Exam: POSITIVE: No Scleral Icterus - ENT ENT Exam: POSITIVE: Mucous Membranes Moist - Neck Neck Exam: JVP is not Raised - Respiratory Respiratory Exam: POSITIVE: Clear to Auscultation - Bilaterally, Breathing Non Labored - Cardiovascular Cardiovascular Exam: POSITIVE: RRR, No Murmur, No Clicks, No Gallops, No Rubs, No JVD - GI/Abdominal GI/Abdominal Exam: POSITIVE: Non Tender, Non Distended, Soft - Extremities Extremities Exam: POSITIVE: No Clubbing Present, No Edema Present, No Cyanosis Present, Joint Swelling (Right knee is dressed with Antoine wrap at this time dressing is clean, dry, intact) - Neurological Neurological Exam: POSITIVE: Alert, Oriented x 3, No Facial Droop, Speech Intact / Clear, Moves All Extremities Equally - Psychiatric Psychiatric Exam: POSITIVE: Normal Affect, Normal Mood - Central Line Examination Central Line Type: PICC Line Central Line Location: Arm (L) Central Line Site Observations: POSITIVE: Asymptomatic, Intact, Patent Data Peritnent Studies: 01/24/19 01/24/19 01/25/19 04:30 04:30 04:15 WBC Hgb Hct MCV MCH MCHC RDW Std Deviation RDW Coeff of Shad Plt Count Sodium 140 Potassium 4.1 Chloride 105 Carbon Dioxide 28 Anion Gap 7 BUN 30 H Creatinine 0.9 Estimated GFR > 60 BUN/Creatinine Ratio 33.33 H Glucose 215 H Mean Blood Glucose Hemoglobin A1c Calculated Osmolality 301.0 H Calcium 8.4 L Iron TIBC % Saturation Total Bilirubin 0.4 AST 27 ALT 16 L Alkaline Phosphatase 116 Total Creatine Kinase C-Reactive Protein 3.4 H Total Protein 6.3 Albumin 3.0 L Globulin 3.3 Albumin/Globulin Ratio 0.90 L Vitamin B12 Vitamin D 25-Hydroxy Serum Folate 01/25/19 01/25/19 01/26/19 04:15 05:00 04:08 WBC Hgb Hct MCV MCH MCHC RDW Std Deviation RDW Coeff of Shad Plt Count Sodium Potassium Chloride Carbon Dioxide Anion Gap BUN Creatinine Estimated GFR BUN/Creatinine Ratio Glucose Mean Blood Glucose 276.970 Hemoglobin A1c 10.90 H Calculated Osmolality Calcium Iron TIBC % Saturation Total Bilirubin AST ALT Alkaline Phosphatase Total Creatine Kinase 20 L C-Reactive Protein Total Protein Albumin Globulin Albumin/Globulin Ratio Vitamin B12 Vitamin D 25-Hydroxy 27.2 L Serum Folate 01/26/19 01/26/19 01/28/19 04:08 04:08 04:03 WBC 7.96 Hgb 10.2 L Hct 34.1 L MCV 74.9 L MCH 22.4 L MCHC 29.9 L RDW Std Deviation 61.4 H RDW Coeff of Shad 23.1 H Plt Count 404 H Sodium Potassium Chloride Carbon Dioxide Anion Gap BUN Creatinine Estimated GFR BUN/Creatinine Ratio Glucose Mean Blood Glucose Hemoglobin A1c Calculated Osmolality Calcium Iron 19 L TIBC 296 % Saturation 6.4 L Total Bilirubin AST ALT Alkaline Phosphatase Total Creatine Kinase C-Reactive Protein Total Protein Albumin Globulin Albumin/Globulin Ratio Vitamin B12 406 Vitamin D 25-Hydroxy Serum Folate 6.57 Procedures: [address] [facility]. [facility] [place] [id number] PH: DD: [phone] FAX: [phone] ~DIAGNOSTIC IMAGING REPORT~ Patient: Alex Guido : 1955 Sex: M Age: 64 Exam Name: US Vascular Access-US Guidance; XR CXR 1VW; XR PICC Line Insertion 5 Yrs> Exam Date: 01/27/19 Report # : [id number] CPT Code: 89236; 18324; 66256 EMR/MR #: [id number] Ordering: Anamika Hull Admiting: Vazquez Meyers MD Primary: NOT IN TABLE Attending: Vazquez Meyers MD Signed INSERTION OF PICC LINE WITH FLUOROSCOPIC GUIDANCE, 01/27/2019 9:15 AM: Clinical History: Septic knee Technique: After informed, signed consent was obtained, the left arm was prepped with Betadine and alcohol. Venipuncture was achieved as described with the ultrasound report and the introducer sheath was positioned in place using the Seldinger technique with local anesthesia (1% Lidocaine without epinephrine). A 4 [place]ian double lumen Bard Power Picc Solo PICC catheter was inserted and the tip was positioned with fluoroscopic guidance. Fluoroscopic documentation was with a spot film. The standard dry sterile dressing kit was used to secure the catheter. Final catheter documentation was with a spot film of the chest and this film confirmed that the catheter tip was in the distal innominate vein with an adjacent pacemaker. The patient tolerated the procedure well and was discharged in stable condition. Standard instructions regarding wound care precautions and dressing changes were discussed with the patient prior to discharge. Senior Mortgage Loan Processor: Yemi zaragoza M.D. Shop Supervisor: None. Complications: None. Reading: PICC line placement as above. ICD9: { } CPT: 50241; 67102 Dictated By: 01/27/19 1509 YEMI ZARAGOZA MD. Signed By: 01/27/19 1515 YEMI ZARAGOZA MD. Patient Problems - Patient Problem List (1) Septic arthritis of knee, right Current Visit: Yes Status: Acute Code(s): M00.9 - Pyogenic arthritis, unspecified Qualifiers: Septic arthritis organism: due to unspecified organism Qualified Code(s): M00.9 - Pyogenic arthritis, unspecified Category: Medical (2) Diabetes mellitus, type II Current Visit: Yes Status: Acute Code(s): E11.9 - Type 2 diabetes mellitus without complications Qualifiers: Diabetes mellitus meterman insulin use: with meterman use Diabetes mellitus complication status: without complication Qualified Code(s): E11.9 - Type 2 diabetes mellitus without complications; Z79.4 - long term care social worker (current) use of insulin Category: Medical (3) Hypertension Current Visit: Yes Status: Acute Code(s): I10 - Essential (primary) hypertension Qualifiers: Hypertension type: essential hypertension Qualified Code(s): I10 - Essential (primary) hypertension Category: Medical (4) History of congestive heart failure Current Visit: Yes Status: Acute Code(s): Z86.79 - Personal history of other diseases of the circulatory system Category: Medical (5) Hypercholesterolemia Current Visit: Yes Status: Acute Code(s): E78.00 - Pure hypercholesterolemia, unspecified Category: Medical (6) Vitamin D deficiency Current Visit: Yes Status: Acute Code(s): E55.9 - Vitamin D deficiency, unspecified Category: Medical (7) Vitamin B12 deficiency Current Visit: Yes Status: Acute Code(s): E53.8 - Deficiency of other specified B group vitamins Category: Medical (8) Iron deficiency Current Visit: Yes Status: Acute Code(s): E61.1 - Iron deficiency Category: Medical
[2019-01-28] MEDS: MAGNESIUM OXIDE 400 MG TABLET PO SCH (08:13)
[2019-01-28] MEDS: CHOLECALCIFEROL 1000 IU TABLET PO SCH (08:13)
[2019-01-28] MEDS: DOCUSATE 100 MG CAPSULE PO SCH (08:13)
[2019-01-28] MEDS: AMIODARONE 200 MG TABLET PO SCH (08:13)
[2019-01-28] MEDS: ASPIRIN EC 81 MG TABLET PO SCH (08:13)
[2019-01-28] MEDS: Apixaban 5 MG TABLET PO SCH (08:13)
[2019-01-28] MEDS: CARVEDILOL 3.125 MG TABLET PO SCH (08:13)
== END 2019-01-28 08:45 | disposition home or self-care (01) | DRG 487 ==
LOC: OR 19:41 → OPS 19:45 → MED/SURG 22:33 → OPS 01-26 16:50 → MED/SURG 01-26 20:05
PROVIDERS: ADMIT Orthopaedic Surgery; ATTEND Orthopaedic Surgery